=== PATIENT | female | born 1980 | race Caucasian/White ===

== ENCOUNTER 2021-04-08 22:44 | Emergency (ER) | payer SELFPAY ==
[2021-04-09] MEDS ORDERED: Dexamethasone 10 MG/ML VIAL ONE (00:59)
== END 2021-04-09 02:13 | disposition home or self-care (01) ==
LOC: CSHERS 22:44
DX: J02.9 Acute pharyngitis, unspecified (principal)
CPT/HCPCS: 70360; J1100

== ENCOUNTER 2022-02-04 03:12 | Emergency (ER) | payer SELFPAY ==
[2022-02-04] MEDS ORDERED: Acetaminophen 500 MG TAB ONE (03:49)
[2022-02-04] MEDS ORDERED: Ondansetron PF 4 MG/2 ML Vial ONE (03:55)
[2022-02-04] MEDS ORDERED: Morphine 4 MG/ML VIAL ONE (03:55)
[2022-02-04 04:05] LABS: #Eosinphils 0.1 10x3/uL (0.0-0.5); #Monocytes 0.3 10x3/uL (0.0-1.1); #Neutrophils 15.9 10x3/uL (1.5-8.4); %Basophils 0.2 % (0.0-2.0); %Eosinophils 0.5 % (0.0-6.0); %Lymphocytes 3.8 % (18.0-47.0); %Monocytes 1.9 % (0.0-10.0); %Neutrophils 93.3 % (40.0-75.0); Hemoglobin 12.2 g/dL (12.0-15.5); Mean Corpuscular HGB CONC 34.3 g/dL (32.0-36.0); Mean Corpuscular Hemoglobin 32.4 pg (27.0-33.0); Mean Corpuscular Volume 94.4 fl (81.6-98.3); Mean Platelet Volume 9.6 fl (7.4-10.4); Platelet Count 263 10x3/uL (150-450); RBC Distribution Width 12.7 % (11.5-14.5); Red Blood Cell (RBC) Count 3.77 10x6/uL (3.90-5.03)
[2022-02-04 04:17] LABS: Bilirubin Neg (Negative); Blood, Urine Negative (Negative); Clarity Sl. Cloudy (Clear); Glucose, Urine (Dipstick) Normal (Negative); Ketone, Urine Negative (Negative); Leukocyte Negative (Negative); Nitrite Negative (Negative); Protein, Urine (Dipstick) 15 mg/dl (Neg-Trace); Urobilinogen Normal mg/dL (Less than 2)
[2022-02-04 04:24] LABS: ALT (SGPT) 16 U/L (8-55); AST (SGOT) 13 U/L (5-34); Albumin 3.8 g/dL (3.5-5.0); Alkaline Phosphatase 61 U/L (40-110); Anion Gap 12 mmol/L (10-20); BUN (Urea Nitrogen) 8 mg/dL (7.0-18.7); Bilirubin, Total 0.7 mg/dL (0.2-1.2); Calc. Creatinine Clearance 0 mL/min (70-130); Calcium 8.6 mg/dL (7.8-10.44); Carbon Dioxide 22 mmol/L (22-29); Chloride 102 mmol/L (98-107); Estimated GFR 112; Globulin 2.1 g/dL (2.4-3.5); Glucose 103 mg/dL (70-105); Protein, Total 5.9 g/dL (6.0-8.3); Sodium 132 mmol/L (136-145)
[2022-02-04 04:41] LABS: SARS-CoV-2 NAA Rapid Test Not Detected (NotDetected)
[2022-02-04] MEDS ORDERED: Ketorolac Tromethamine 30 MG/ML VIAL ONE (04:41)
[2022-02-04] MEDS ORDERED: cefTRIAXone\\ROCEPHIN 2 GM VIAL ONE (06:48)
== END 2022-02-04 07:33 | disposition home or self-care (01) ==
LOC: CSHERS 03:12
DX: R50.9 Fever, unspecified (principal); D72.829 Elevated white blood cell count, unspecified; Z20.822 Contact with and (suspected) exposure to COVID-19; Z87.891 Personal history of nicotine dependence
CPT/HCPCS: 36415; 71045; 80053; 81003; 83605; 84484; 85025; 87040; 87086; 93005; 96365; 96375; J0696; J1885; J2270; J2405